=== PATIENT | male | born 1990 | race Caucasian/White ===

== ENCOUNTER 2020-07-13 11:43 | Outpatient (REF) | payer OTHER, SELFPAY ==
[2020-07-13 12:41] LABS: COVID-19 Test Negative (Negative)
== END 2020-07-13 11:44 | disposition home or self-care (01) ==
LOC: HO.LAB 11:43
PROVIDERS: Visit Provider Internal Medicine
DX: Z20.822 Contact with and (suspected) exposure to COVID-19 (principal)
CPT/HCPCS: 36415; 87635; C9803

== ENCOUNTER 2025-01-08 21:21 | Emergency (ER) | payer OTHER, SELFPAY ==
--- NOTE | ~2025-01-08 | XR_ITS ---
CLINICAL HISTORY: pain x2 months, nontraumatic 2 view right hip Comparison: None provided Findings: There is a slightly lytic and sclerotic appearance to the femoral head with partial collapse of the weight-bearing surface. Mild to moderate loss of joint space at the hip. The soft tissues are unremarkable. 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 The chronicity of this finding is indeterminate. This document has been electronically signed by: Inocencio Hardin MD on 01/08/2025 22:24:11
--- NOTE | ~2025-01-08 | CT_ITS ---
CLINICAL HISTORY: suspicion avascular necrosis of R hip CT right hip without contrast Comparison: CR - XR HIP RT MIN 2V - 01/08/25 21:48 EDT Findings: Chronic right hip dysplasia. 1.4 cm bone fragment at the weight-bearing surface of the femoral head is chronic. Underlying this there is subcortical cystic change. There is no significant sclerosis of the femoral head. Moderate loss of joint space at the hip. No hip effusion. Soft tissues are unremarkable. Impression: 1. Findings of the right hip favor hip dysplasia with an old osteochondral injury of the femoral head. This document has been electronically signed by: Inocencio Hardin MD on 01/09/2025 00:41:34
[2025-01-08 21:24] VITALS: BP 139/67; PULSE 71; RESP 18; TEMP 37; O2SAT 98; BMI 26.4
--- OUTSIDE RECORDS SUMMARY | 2025-01-08 22:09 | XMS_ITS | Clinical Summary ---
Author Organization [facility] ity Address [address] [place] [address] Care Team Providers Care Portfolio Management Marketing Name Role Merchandise Flow AssociateEnmanuel Santana MD Primary Care Provider [phone] Surgical History Surgery Date Site/Laterality Comments OTHER SURGICAL HISTORY PROCEDURE: GA UNLISTED PROCEDURE PELVIS/HIP JOINT; COMMENT: displagia, congenital, as an infant Family History Medical History Relation Name Comments Other: no DM Other 1 Other: no HTN Other 2 Other: no [place] Other 3 Other: no Stroke Other 4 Other: no cancer Other 5 Relation Name Status Comments Father Alive Maternal Grandfather unknown reasaon Maternal Grandmother Alive Mother Alive Other 1 Other 2 Other 3 Other 4 Other 5 Other 6 Social History Tobacco Use Types Packs/Day Years Used Date Smoking Tobacco: Never Alcohol Use Standard Drinks/Week Comments No 0 (1 standard drink = 0.6 oz pur e alcohol) Sex and Gender Information Value Date Recorded Sex Assigned at Not on file Legal Sex Male 4:34 AM EST Gender Identity Not on file Sexual Orientation Not on file Obstetrics History Plan of Treatment Health Maintenance Due Date Last Done Comments DTaP,Tdap,and Td Vaccines (1 - Tdap) 08/08/2011 Hepatitis B Vaccines (1 of 3 - 19+ 3-dose series) 08/08/2011 HPV Vaccines (1 - 3-dose SCD M series) 08/08/2019 HIV Screening 01/12/2024 Hepatitis C Screening 01/12/2024 Social Influencers of Health Screening 01/12/2024 Depression Screening 03/11/2024 COVID-19 Vaccine (1 - 2023-2 5 season) 2024 Influenza Vaccine (#1) 2024 RSV Immunization Adult Patie nts (1 - 1-dose 75+ series) 08/08/2067 HIB Vaccines Aged Out No longer eligi ble based on patient's age to complete this topic Hepatitis A Vaccines Aged Out No long er eligible based on patient's age to complete this topic IPV Vaccines Aged Out No longer eligi ble based on patient's age to complete this topic MMR Vaccines Aged Out No longer eligi ble based on patient's age to complete this topic Meningococcal ACWY Vaccine Aged Out N o longer eligible based on patient's age to complete this topic Meningococcal B Vaccine Aged Out No l onger eligible based on patient's age to complete this topic Pneumococcal Vaccine: Pediat rics (0 to 5 Years) and At-Risk Patients (6 to 49 Years) Aged Out No longer eligible b ased on patient's age to complete this topic RSV Immunization Patients Un cosme 20 months Aged Out No longer eligible b ased on patient's age to complete this topic Varicella Vaccines Aged Out No longer eligible based on patient's age to complete this topic Care Teams Portfolio Management Marketing Relationship Specialty Start Date End Date Enmanuel Santana MD PCP - General Internal Medicine 10/21/13
--- OUTSIDE RECORDS SUMMARY | 2025-01-08 22:09 | XMS_ITS | Clinical Summary ---
Author Organization [facility] Address [address] [place] [id number] Care Team Providers Care Senior Applications Engineer Name Role Phone No, Pcp Primary Care Provider Unavailabl e Allergies No known active allergies Medications No known medications Active Problems Problem Noted Date Diagnosed Date Examination, routine, over 18 years of age 1012/15 Vasectomy evaluation 10/13/2020 Family History Relation Status Comments Father Alive Mother Alive Social History Tobacco Use Types Packs/Day Years Used Date Smoking Tobacco: Never Smokeless Tobacco: Never Alcohol Use Standard Drinks/Week Comments Yes 0 (1 standard drink = 0.6 oz pur e alcohol) PHQ-2 Answer Date Recorded Depression Risk (PHQ2) Score 0 09/2020 Sex and Gender Information Value Date Recorded Sex Assigned at Not on file Legal Sex Male 12:28 PM [facility] Gender Identity Not on file Sexual Orientation Not on file Last Filed Vital Signs Vital Sign Reading Time Taken Comments Blood Pressure 117/71 12/15/2020 8:55 AM EDT Pulse 76 12/15/2020 8:55 AM EDT Temperature 36.7 C (98 F) 12/15/2020 8:55 AM EDT Respiratory Rate - - Oxygen Saturation 96% 12/15/2020 8:55 AM EDT Inhaled Oxygen Concentration - - Weight 87.8 kg (193 lb 9.6 oz) 12/15/2020 8:55 A M EDT Height 175.6 cm (5' 9.13 ) 10/13/2020 9:59 AM ED T Body Mass Index 28.48 10/13/2020 9:59 AM EDT Plan of Treatment Health Maintenance Due Date Last Done Comments Hepatitis C Screening 1992 MMR Vaccines (1 of 1 - Standard series) 1993 PHQ-9 Depression Screen 2004 Varicella Vaccines (1 of 2 - 13+ 2-dose series) 2005 Annual Preventive Exam 2010 BIBIANA-7 Anxiety Screen 2010 DTaP,Tdap,and Td Vaccines (1 - Tdap) 08/08/2011 Hepatitis B Vaccines (1 of 3 - 19+ 3-dose series) 07/11 Influenza Vaccine (#1) 2024 RSV Vaccine (SCDM) (1 - 1-dose 75+ series) 08/08/2067 COVID-19 Vaccine Discontinued Insurance [employer] Care Teams Senior Applications Engineer Relationship Specialty Start Date End Date No, Pcp PCP - General 10/13/20
--- NOTE | 2025-01-08 22:42 | ED_ITS ---
HPI - Extremity Injury (Lower) General Chief Complaint: Extremity Injury, Lower Stated Complaint: rt side pain/had x-ray UC advised him to go to ER Time Seen by Provider: 01/08/25 22:28 Source: patient Related Data Allergies Allergy/AdvReac Type Severity Reaction Status Date / Time No Known Allergies Allergy Verified 01/08/25 21:24 PMF Social History Social History Smoked in Last 30 Days: No Use of substances other than those prescribed or required for medical reasons: No Advance Directives: No Advance Directives Information Provided: No Physical Exam 2 Vital Signs: Vital Signs: Last Vital Signs Temp 97.4 F 01/08/25 23:16 Pulse 67 01/08/25 23:16 Resp 16 01/08/25 23:16 BP 120/64 01/08/25 23:16 Pulse Ox 97 01/08/25 23:16 O2 Del Method Room Air 01/08/25 23:16 BMI result Body Mass Index 26.4 Medications Administered Discontinued Medications Generic Name Dose Route Start Last Admin Trade Name Freq PRN Reason Stop Dose Admin Iohexol 85 ml 01/08/25 23:49 01/08/25 23:52 Iohexol 350 Mg/Ml 100 Ml Infus..Btl IV 01/08/25 23:50 85 ml ONCE ONE Administration Medical Decision Making Medical Decision Making [facility] Narrative: Patient's x-rays of the right hip shows 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 Unfortunately, this diagnosis may hinder his ability to participate in the [employer] A CT scan of the hip has been ordered. 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 Patient to be cleared by orthopedics before joining the [employer] Patient agrees with plan. Before coming to the ED, patient was seen at urgent Care and he was prescribed several pain medications. Patient already picked him up. Differential Diagnosis Differential Diagnoses: The differential diagnosis associated with the presentation includes (Hip dysplasia, osteonecrosis, arthritis) Lab Data [facility] Lab Attestation statement: I reviewed the patient's lab results. 01/08/25 23:04 01/08/25 23:04 Labs: Lab Results 10/31/25 Range/Units 23:04 WBC 9.0 (4.8-10.8) X10*3/uL RBC 4.97 (4.60-5.80) X10*6/uL Hgb 15.0 (14.0-18.0) g/dl Hct 44.3 (42.0-52.0) % MCV 89.1 (80.0-98.0) fL MCH 30.2 (27.0-33.0) pg MCHC 33.9 (31.0-36.0) g/dl RDW 12.2 (11.0-16.0) % Plt Count 255 (160-400) X10*3/uL MPV 10.1 (9.4-12.4) fL Immature Gran % (Auto) 0.1 (0.0-0.4) % Neut % (Auto) 55.1 (45-73) % Lymph % (Auto) 36.2 (20-40) % [place] % (Auto) 6.4 (2-11) % Eos % (Auto) 1.5 (0-4) % Baso % (Auto) 0.7 (0-2) % Lymph # (Auto) 3.2 (1.2-4.9) X10*3/uL [place] # (Auto) 0.6 (0.1-1.2) X10*3/uL Eos # (Auto) 0.1 (0.0-0.4) X10*3/uL Baso # (Auto) 0.1 (0.0-0.2) X10*3/uL Abs Immat Gran (auto) 0.01 (0.00-0.03) X10*3/uL Absolute Neuts (auto) 4.9 (2.0-8.3) x10*3/uL Absolute Nucleated RBC 0.000 (0.0-0.012) X10*3/uL Nucleated RBC % (auto) 0.0 (0.0-0.2) /100WBC Sodium 141 (135-145) mmol/L Potassium 4.2 (3.3-5.1) mmol/L Chloride 108 (96-108) mmol/L Carbon Dioxide 27 (22-29) mmol/L Anion Gap 10 L (12-20) BUN 17 H (9-16) mg/dL Creatinine 0.85 (0.5-1.4) mg/dL Estim Creat Clear Calc 124.7 Estimated GFR > 60 Random Glucose 100 (60-115) mg/dL Calcium 9.3 (8.4-10.2) mg/dL Independent Interpretation I performed an independent interpretation of an: CT Scan Radiology Impression Discussion of test interpretation with radiology: I have reviewed the radiologist's reading. Radiologist Impression: Chronic right hip dysplasia. 1.4 cm bone fragment at the weight-bearing surface of the femoral head is chronic. Underlying this there is subcortical cystic change. There is no significant sclerosis of the femoral head. Moderate loss of joint space at the hip. No hip effusion. Soft tissues are unremarkable. Impression: 1. Findings of the right hip favor hip dysplasia with an old osteochondral injury of the femoral head There is a slightly lytic and sclerotic appearance to the femoral head with partial collapse of the weight-bearing surface. Mild to moderate loss of joint space at the hip. The soft tissues are unremarkable. 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 The chronicity of this finding is indeterminate. Critical Care Time Critical Care Time Critical Care Time: Yes Total Critical Care Time: 35 Attestation: I have personally provided critical care time. Time includes review of lab data, radiology results, discussion with consultants, and monitoring for potential decompensation. Intervention performed as documented. Discharge Plan Discharge Clinical Impression: Hip dysplasia Patient Disposition: Home, Self-Care Instructions: Arthralgia (ED) Additional Instructions: Please follow-up with your primary care physician tomorrow. If you have any worsening or new symptoms, please return to the emergency room or call 911. Please do not participate in strenuous physical activity until he gets seen by Orthopedics. Referrals: Jesus Hi PA [Physician Trumpet Teacher, Hand Surgery] Referral Note: Avascular necrosis of the femoral head, starting police academy in 2 weeks Print Language: Czech
[2025-01-08 23:07] LABS: MANUAL DIFF FLAG NO
[2025-01-08 23:09] LABS: Hematocrit 44.3 % (42.0-52.0); Hemoglobin 15.0 g/dl (14.0-18.0); Imm Gran Abs Auto 0.01 X10*3/uL (0.00-0.03); Imm Gran Pct Auto 0.1 % (0.0-0.4); Lymphocytes Absolute Auto 3.2 X10*3/uL (1.2-4.9); Mean Corpuscular HGB Conc 33.9 g/dl (31.0-36.0); Mean Corpuscular Hemoglobin 30.2 pg (27.0-33.0); Mean Corpuscular Volume 89.1 fL (80.0-98.0); NRBC Abs Auto 0.000 X10*3/uL (0.0-0.012); NRBC Pct Auto 0.0 /100WBC (0.0-0.2); Platelet Count 255 X10*3/uL (160-400); Red Blood Count 4.97 X10*6/uL (4.60-5.80); White Blood Count 9.0 X10*3/uL (4.8-10.8)
[2025-01-08 23:16] VITALS: BP 120/64; PULSE 67; RESP 16; TEMP 36.3; O2SAT 97
[2025-01-08 23:22] LABS: Anion Gap 10 (12-20); Blood Urea Nitrogen 17 mg/dL (9-16); Calcium 9.3 mg/dL (8.4-10.2); Carbon Dioxide 27 mmol/L (22-29); Chloride 108 mmol/L (96-108); Creatinine Clr Calc Pharmacy 124.7; Estimated Glomerular Filt Rate > 60; Potassium 4.2 mmol/L (3.3-5.1); Sodium 141 mmol/L (135-145)
[2025-01-08] MEDS: iohexoL 350 MG/ML 100 ML INFUS..BTL 85 ML IV (23:52)
[2025-01-09 00:56] VITALS: BP 120/64; PULSE 67; RESP 16; TEMP 36.3; O2SAT 97
== END 2025-01-09 01:04 | disposition home or self-care (01) ==
PROVIDERS: Emergency Provider Emergency Medicine
DX: Q65.89 Other specified congenital deformities of hip (principal); M25.551 Pain in right hip
CPT/HCPCS: 36415; 73502; 73701; 80048; 85025; 99284; Q9967

== ENCOUNTER → 2025-01-08 21:40 | Outpatient (BNV) | payer OTHER, SELFPAY | PROVIDERS: Emergency Provider Emergency Medicine; Visit Provider Radiology Diagnostic Radiology | DX: M25.551 Pain in right hip (principal) | CPT/HCPCS: 73502; 73701 ==